=== PATIENT | male | born 1975 | race Caucasian/White ===

== ENCOUNTER 2017-08-10 20:00 | Emergency (ER) | payer BC ==
[2017-08-10] MEDS ORDERED: Acetaminophen/HYDROcodone 325-5 MG Tab PO ONE (20:01)
--- NOTE | 2017-08-10 20:39 | EDM.PDOC ---
ED HPI GENERAL MEDICAL PROBLEM - General Chief Complaint: General Stated Complaint: ELBOW PAIN Time Seen by Provider: 08/10/17 20:28 Source of Information: Reports: Patient History Limitations: Reports: No Limitations - History of Present Illness INITIAL COMMENTS - FREE TEXT/NARRATIVE: Raimundo is a 42 year old male who presents to the ED with c/o left elbow pain. 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 He reports initially the pain was very severe. Injury happened at 2 pm this afternoon. He reports that he took 800 mg of ibuprofen. The pain has since improved, but remains a dull ache. He reports increased pain with movement. He reports limited ROM. He does report he did have some numbness and tingling in his hands, but that has since resolved. Denies any head injury, LOC , injury or pain to any other location. Does not have any other complaints. 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 ED EXAM, GENERAL - Physical Exam Exam: See Below Exam Limited By: No Limitations General Appearance: Alert, WD/WN, No Apparent Distress Head: Atraumatic, Normocephalic Neck: Normal Inspection, Supple, Non-Tender, Full Range of Motion Respiratory/Chest: No Respiratory Distress, Lungs Clear, Normal Breath Sounds, No Accessory Muscle Use, Chest Non-Tender Cardiovascular: Normal Peripheral Pulses, Regular Rate, Rhythm, No Edema, No Gallop, No JVD, No Murmur, No Rub Peripheral Pulses: 2+: Radial (L) Extremities: Normal Capillary Refill, Joint Swelling (left elbow), Arm Pain ( left elbow), Redness (left elbow). No: Increased Warmth Neurological: No: Sensory/Motor Deficit Psychiatric: Normal Affect, Normal Mood Skin Exam: Warm, Dry, Intact, Normal Color, No Rash Course - Vital Signs Last Recorded V/S: Last Vital Signs Temp 97.2 F 08/10/17 20:23 Pulse 83 08/10/17 20:23 Resp 20 08/10/17 20:23 BP 150/87 H 08/10/17 20:23 Pulse Ox 98 08/10/17 20:23 - Orders/Labs/Meds Orders: Active Orders 24 hr Category Date Time Status Elbow Min 3V Lt [CR] Stat Exams 08/10/17 20:22 Taken Meds: Medications Discontinued Medications Generic Name Dose Route Start Last Admin Trade Name Freq PRN Reason Stop Dose Admin Hydrocodone Bitart/Acetaminophen 2 packet 08/10/17 21:21 08/10/17 21:28 Take Home: Acetaminophen/Hydrocod, 2 Tab Pack PO 08/10/17 21:22 Not Given ONETIME ONE - Re-Assessments/Exams Free Text/Narrative Re-Assessment/Exam: Discussed xray findings with patient. Elbow xray shows no acute fracture or acute osseous abnormality. Alignment is unremarkable. Does have a exostosis on the distal metaphyseal region of the humerus measuring 2 cm cranial caudal by about 1 cm AP. Minor posterior soft tissue swelling more distally to the olecraon region. No obvious joint effusion of fat pad sign. Discussed that if down the road he starts to have chronic left elbow pain, without acute trauma, reimaging of the exostosis would be warranted. Free Text/Narrative Re-Assessment/Exam: PLEASE SEE NURSES NOTE FOR PMH, PSH, SH, AND FH. Departure - Departure Time of Disposition: 21:20 Disposition: Home, Self-Care 01 Condition: Good Clinical Impression: Left elbow contusion Qualifiers: Encounter type: initial encounter Qualified Code(s): S50.02XA - Contusion of left elbow, initial encounter - Discharge Information Instructions: Elbow Contusion, [id number] Referrals: Provider,Unknown [Primary Care Provider] - Forms: ED Department Discharge Additional Instructions: Ice affected area at least 3 times a day for 20 minutes at a time Meds as directed Ibuprofen 600 mg every 8 hours as needed for pain Follow up if symptoms worsen or do not improve - My Orders Last 24 Hours: My Active Orders 08/10/17 20:22 Elbow Min 3V Lt [CR] Stat - Assessment/Plan Last 24 Hours: My Active Orders 08/10/17 20:22 Elbow Min 3V Lt [CR] Stat
[2017-08-10] MEDS ORDERED: Take Home: Acetaminophen/HYDROcodone 325-5 MG, 2 Tab Pack PO ONE (21:21)
== END 2017-08-10 21:30 | disposition home or self-care (01) ==
LOC: CC.ED 20:00
DX: S50.02XA Contusion of left elbow, initial encounter (principal); W55.22XA Struck by cow, initial encounter
CPT/HCPCS: 73080-LT; 99283; A9270-GY

== ENCOUNTER 2022-05-05 12:37 | Emergency (ER) | payer BC | END 2022-05-05 13:55 | disposition home or self-care (01) | LOC: CC.ED 12:37 | DX: S00.83XA Contusion of other part of head, initial encounter (principal); W00.0XXA Fall on same level due to ice and snow, initial encounter | CPT/HCPCS: 99283; 99284 ==

== ENCOUNTER → 2023-06-05 | Day surgery (SDC) | payer BC ==
[~2023-06-05] MED LIST: Ketamine 200 MG/20 ML MDV ONE; Lactated Ringers 1,000 ML IV SCH; Midazolam 1 MG/ML 2 ML SDV ONE; Propofol 200 MG/20 ML SDV ONE; fentaNYL 50 MCG/ML SDV ONE
== END ==
LOC: CC.SDS 07:51
PROVIDERS: ATTEND Family Medicine
DX: Z12.11 Encounter for screening for malignant neoplasm of colon (principal); K57.30 Diverticulosis of large intestine without perforation or abscess without bleeding; K42.9 Umbilical hernia without obstruction or gangrene; I10 Essential (primary) hypertension; G47.30 Sleep apnea, unspecified; E66.01 Morbid (severe) obesity due to excess calories; Z79.899 Other long term (current) drug therapy; Z68.42 Body mass index [BMI] 45.0-49.9, adult
CPT/HCPCS: 00812; J2250; J2704; J3010; J3490; J7120